=== PATIENT | female | born 1970 | race Caucasian/White ===

== ENCOUNTER 2017-03-07 23:22 | Emergency (ER) | payer OTHER ==
[~2017-03-07] VITALS: Ht 170.2 cm; Wt 68.0 kg
--- NOTE | 2017-03-07 23:52 | NUR ---
Patient discharged to home in stable conditon. Written and verbal after care instructions given. Patient verbalizes understanding of instructions.
== END 2017-03-07 23:53 | disposition home or self-care (01) ==
LOC: ER 23:29
DX: R09.82 Postnasal drip (principal)
CPT/HCPCS: 99281; A4663